=== PATIENT | female | born 1930 | race African-American/Black ===

== ENCOUNTER 2018-04-11 00:10 | Inpatient (IN) | payer MEDICARE, MEDICAID ==
[2018-04-11 01:27] LABS: ALT (SGPT) Less than 7 U/L (8-55); AST (SGOT) 11 U/L (5-34); Albumin 3.5 g/dL (3.4-4.8); Alkaline Phosphatase 67 U/L (40-150); Anion Gap 11 mmol/L (10-20); BUN (Urea Nitrogen) 11 mg/dL (9.8-20.1); Bilirubin, Total 0.6 mg/dL (0.2-1.2); CK (CPK) 14 U/L (29-168); Calc. Creatinine Clearance 0 mL/min (70-130); Calcium 9.2 mg/dL (7.8-10.44); Carbon Dioxide 29 mmol/L (23-31); Chloride 104 mmol/L (98-107); Estimated GFR-MDRD 86; Globulin 3.8 g/dL (2.4-3.5); Glucose 103 mg/dL (83-110); Lipase 14 U/L (8-78); Protein, Total 7.3 g/dL (6.0-8.3); Sodium 140 mmol/L (136-145)
[2018-04-11 01:31] LABS: CKMB 0.4 ng/mL (0-6.6); Troponin I Less than 0.010 ng/mL (< 0.028)
[2018-04-11 01:32] LABS: #Basophils 0.1 thou/uL (0.0-0.2); #Eosinphils 0.2 thou/uL (0.0-0.7); #Lymphocytes 2.8 thou/uL (1.20-3.40); #Monocytes 0.4 thou/uL (0.11-0.59); #Neutrophils 4.6 thou/uL (1.40-6.50); %Basophils 0.7 % (0.0-1.0); %Eosinophils 2.2 % (0.0-10.0); %Lymphocytes 34.8 % (21.0-51.0); %Monocytes 4.7 % (0.0-10.0); %Neutrophils 57.6 % (42.0-75.0); Hemoglobin 11.9 g/dL (12.0-16.0); MDiff Complete? YES; Macrocytosis SLIGHT = 6-15 cells (100X) (0-5/hpf); Mean Corpuscular Hemoglobin 37.7 pg (27.0-31.0); Mean Platelet Volume 6.8 fL (7.4-10.4); Platelet Count 247 thou/uL (130-400); RBC Distribution Width 15.8 % (11.5-14.5); Red Blood Cell (RBC) Count 3.16 mill/uL (4.20-5.40); White Blood Cell (WBC) Count 8.1 thou/uL (4.8-10.8)
[2018-04-11] MEDS ORDERED: Mag-Al 1200 mg/1200 mg/30 ML UDCUP ONE (01:41)
[2018-04-11] MEDS ORDERED: Lidocaine Viscous Sol 2% 15 ml UD Cup ONE (01:41)
[2018-04-11 06:29] LABS: Troponin I Less than 0.010 ng/mL (< 0.028)
[2018-04-11] MEDS ORDERED: Sodium Chloride 0.45% 1,000 ML IV SCH (07:21)
[2018-04-11 07:32] VITALS: BMI 15.7
--- NOTE | 2018-04-11 08:11 | ULT ---
PRELIMINARY REPORT/[facility]/EMERGENCY AFTER HOURS PROCEDURE: EXAM: US Abdomen Limited, Right Upper Quadrant EXAM DATE/TIME: 04/11/2018 1:13 AM CLINICAL HISTORY: 87 years old, female; Pain; Other: Epigastric pain TECHNIQUE: Real-time ultrasound of the abdomen with image documentation. Examination was focused on the right up per quadrant. COMPARISON: No relevant prior studies available. FINDINGS: Liver: No acute findings. No masses. Gallbladder: Gallbladder stones and sludge. Questionable borderline gallbladder wall thickening. Common bile duct: Measures 0.5cm in diameter. Pancreas: Limited visualization due to bowel gas. Right kidney: Right hydronephrosis. Other findings: Bilateral ureteral jets visualized. IMPRESSION: Cholelithiasis with questionable borderline gallbladder wall thickening; recommend clinical correlati on/followup to exclude cholecystitis. Right hydronephrosis. Further evaluation can be performed with CT. Thank you for allowing us to participate in the care of your patient. Dictated and Authenticated by: Rogelio Chapman MD 04/11/2018 1:55 AM Central Time ([place] & [place]) FINAL REPORT RIGHT UPPER QUADRANT ULTRASOUND: Date: 04/11/18 FINDINGS/IMPRESSION: I agree with the preliminary report given by Brooke. POS: CHAU
--- NOTE | 2018-04-11 08:15 | CT ---
PRELIMINARY REPORT/[facility]/EMERGENCY AFTER HOURS PROCEDURE: EXAM: CT Angiography Chest With Intravenous Contrast EXAM DATE/TIME: 04/11/2018 3:18 AM CLINICAL HISTORY: 87 years old, female; Pain and signs and symptoms; Shortness of breath; Chest pain; Type not specifie d; Patient HX: F88 C/O intermittent dull epigastric pain onset today. PT reports associated symptoms of SOB and cough today. H reports hr was in 120s, but ems reports it has been in the 80s TECHNIQUE: Axial computed tomographic angiography images of the chest with intravenous contrast using CT angiogr aphy protocol. MIP reconstructed images were created and reviewed. COMPARISON: No relevant prior studies available. FINDINGS: Pulmonary arteries: Limited evaluation of the lower lobe pulmonary arteries due to motion, streak art ifacts and suboptimal contrast opacification. No central filling defect to suggest acute pulmonary em bolism. Mild pulmonary artery enlargement suggestive of pulmonary hypertension. Aorta: Scattered atherosclerotic calcifications and plaques. No aortic aneurysm or dissection. Lungs: No mass. No consolidation. Bibasilar pleuroparenchymal scarring. Few punctate nonspecific nodu les. Mild peribronchial thickening and secretions. Pleural space: No pneumothorax. No pleural effusion. Heart: Mild cardiomegaly. Coronary calcifications. No pericardial effusion. Mediastinum: Small hiatal hernia. Bones/joints: No acute fracture. Soft tissues: No acute findings. Lymph nodes: No enlarged lymph nodes. Upper abdomen: Refer to same day CT abdomen. IMPRESSION: No evidence of acute pulmonary embolism. Mild cardiomegaly. Coronary calcifications. Other findings above. Thank you for allowing us to participate in the care of your patient. Dictated and Authenticated by: Rogelio Chapman MD 04/11/2018 4:13 AM Central Time ([place] & [place]) FINAL REPORT CT PULMONARY ANGIOGRAM WITH IV CONTRAST AND 3D POSTPROCESSING: Date: 04/11/18 FINDINGS/IMPRESSION: I agree with the preliminary report given by Brooke. POS: CHAU
--- NOTE | 2018-04-11 08:17 | CT ---
PRELIMINARY REPORT/[facility]/EMERGENCY AFTER HOURS PROCEDURE: EXAM: CT Abdomen and Pelvis With Intravenous Contrast EXAM DATE/TIME: 04/11/2018 3:18 AM CLINICAL HISTORY: 87 years old, female; Pain; Abdominal pain; Epigastric; Patient HX: F88 C/O intermittent dull epigast beba pain onset today. PT reports associated symptoms of SOB and cough today. H reports hr was in 120s , but ems reports it has been in the 80s TECHNIQUE: Axial computed tomography images of the abdomen and pelvis with intravenous contrast. Coronal reforma tted images were created and reviewed. COMPARISON: US Gallbladder RUQ 04/11/2018 1:13 AM FINDINGS: Lower thorax: Refer to same day CT chest. ABDOMEN: Liver: No acute findings. No mass. Gallbladder and bile ducts: Gallbladder sludge/small stones seen on ultrasound are not well appreciat ed by CT. Pancreas: No acute findings. No ductal dilation. Spleen: No acute findings. No splenomegaly. Adrenals: No acute findings. No mass. Kidneys and ureters: No acute findings. No hydronephrosis. Bilateral parapelvic cysts. Stomach and bowel: Fecal loading. Diverticulosis. No evidence of bowel obstruction. Appendix: No evidence of appendicitis. PELVIS: Bladder: No acute findings. Reproductive: No acute findings. Probable calcified uterine fibroid. ABDOMEN and PELVIS: Intraperitoneal space: Trace pelvic cul-de-sac fluid. Bones/joints: No acute fracture. No dislocation. Soft tissues: No acute findings. Fat-containing umbilical hernia. Vasculature: Atherosclerotic calcifications. No aortic aneurysm or dissection. Lymph nodes: No acute findings. No enlarged lymph nodes. IMPRESSION: No acute CT findings. Refer to same day ultrasound for evaluation of the gallbladder. Thank you for allowing us to participate in the care of your patient. Dictated and Authenticated by: Rogelio Chapman MD 04/11/2018 4:26 AM Central Time ([place] & [place]) FINAL REPORT CT ABDOMEN AND PELVIS WITH IV CONTRAST: Date: 04/11/18 FINDINGS/IMPRESSION: I agree with the preliminary report given by Brooke. POS: MADDISON
--- NOTE | 2018-04-11 08:35 | RAD ---
RADIOGRAPH CHEST 1 VIEW: HISTORY: 87-year-old female with chest pain. FINDINGS: The thoracic aorta is tortuous and ectatic. There is no evidence of air space density, pneumothorax, or pulmonary edema. The lateral costophrenic angles are sharp. IMPRESSION: 1. No acute pulmonary findings. 2. Ectasia of thoracic aorta. milvia [] POS: CHAU
[2018-04-11] MEDS ORDERED: Prevnar 13-Val Conj/PF 0.5 ML SYRINGE IM ONE (09:00)
[2018-04-11 09:44] LABS: Troponin I Less than 0.010 ng/mL (< 0.028)
[2018-04-11 09:58] LABS: Bilirubin Negative (Negative); Blood, Urine Small (Negative); Clarity CLEAR (Clear); Glucose, Urine (Dipstick) Negative (Negative); Leukocyte Large (Negative); Nitrite Positive (Negative); Protein, Urine (Dipstick) Negative (Neg-Trace); Specific Gravity, Urine 1.025 (1.002-1.036)
[2018-04-11 10:00] LABS: Bacteria/HPF None Seen HPF (None Seen); Hyaline Casts/LPF 0-3 HYALINE CAST LPF (0-3 Hyaline); Squamous Epithelial 0-3 HPF (0-3)
[2018-04-11] MEDS ORDERED: ISOVUE-370 76%-LOCM 1 ML ONE (12:39)
--- NOTE | 2018-04-11 17:34 | NM ---
HEPATOBILIARY SCAN: 04/11/18 HISTORY: Abdominal pain, epigastric pain, cholelithiasis on ultrasound from earlier today. RADIOPHARMACEUTICAL: 5.2 millicuries technetium 99m - Mebrofenin injected intravenously. FINDINGS: There is good tracer extraction of the liver with prompt excretion to the biliary tract and small bow el loops and filling of the gallbladder. The calculated gallbladder ejection fraction following an oral fatty meal measures 88%. IMPRESSION: Normal exam. POS: FELIPAA
--- NOTE | 2018-04-11 18:25 | CON ---
DATE OF CONSULTATION: 04/11/2018 REQUESTING PHYSICIAN: Dr. Ag Andujar. HISTORY OF PRESENT ILLNESS: This is an 87-year-old -Chinese woman, a resident of an extended care facility who was brought to the emergency department today for evaluation of acute onset of iban st pain. Reportedly, the patient's heart rate in the 120s in the care home; however, heart rate h as been less than 100 in the emergency department. Finding no evidence of acute coronary syndrome, f urther workup included abdominal ultrasound which revealed biliary sludge. Patient has been referred to General Surgery for further evaluation to exclude any surgical disease. At the time of my evalua tion, patient denies any pain. She denies any nausea, vomiting. She has had no fevers or chills. PAST MEDICAL HISTORY: Significant for hyperlipidemia, previous pulmonary embolism. PAST SURGICAL HISTORY: 1. Pertinent for bilateral intraocular lens implant for cataracts. 2. She has had no abdominal or chest surgeries. SOCIAL HISTORY: Patient is a resident of a care home who has no cigarette smoking, ethanol or ill icit drug abuse. FAMILY HISTORY: Noncontributory for this patient's age. PREHOSPITAL MEDICATIONS: Includes acetaminophen 650 mg p.o. q.6 hours p.r.n. pain, meclizine 25 mg p .o. q.i.d., Protonix 40 mg p.o. daily, Zofran 4 mg p.o. q.6 hours p.r.n. nausea. REVIEW OF SYSTEMS: Essentially unremarkable except for as stated in past medical history and chief c omplaint. PHYSICAL EXAMINATION: GENERAL: This reveals an 87-year-old normally developed woman who is otherwise coherent and interact prashanth. She appears to be in no acute distress at the time of my evaluation. VITAL SIGNS: Includes blood pressure 146/58, pulse 64, respiratory rate is 20, temperature is 97.8 d egrees Fahrenheit, oxygen saturation 99% on room air. HEENT: Reveals pupils equal, round, reactive to light and accommodation. She has no sclerae icterus present. HEART: Reveals regular rate and rhythm, no murmurs or gallops auscultated. LUNGS: Clear to auscultation bilaterally. Breathing regular and unlabored. ABDOMEN: Soft, nontender, nondistended. Liver and spleen are nonpalpable below costal margin. EXTREMITIES: With 2+ radial and pedal pulses bilaterally. She has no ankle edema present. NEUROLOGICAL: Examination reveals no focal neurologic deficits present. PERTINENT LABORATORY DATA: Today includes a CBC with normal white blood cell count of 8100, hemoglob in and hematocrit 11.9 and 37.3 respectively. Platelet count is 247,000. Metabolic profile: Sodium 140, potassium is 4.0, chloride is 104, bicarbonate is 29, BUN 11, creatinine 0.77, glucose 103, tot al bilirubin is 0.6, AST and ALT 11 and less than 7 respectively. Serum lipase is normal at 14. I have personally reviewed the CT scan of the chest, abdomen, and pelvis, both of which are unremarka ble for any acute intrathoracic or intra-abdominal pathology. I have also reviewed the abdominal ult rasound, which reveals biliary sludge. No gallbladder wall thickening, no pericholecystic fluid or g allstones present. Common bile duct size is normal for this patient's age at 4.8 mm in diameter. IMPRESSION: 1. Resolved epigastric abdominal pain. 2. Biliary sludge with no clinical or radiographic evidence of acute cholecystitis. PLAN: 1. We will obtain HIDA scan to rule out chronic biliary dysfunction. 2. There is no acute surgical indication for this patient at this time. 3. We will re-evaluate the patient again once the HIDA scan has been completed and make further tarsha mmendations as necessary.
[2018-04-11] MEDS: Pantoprazole 40 MG VIAL IVP SCH (22:17)
--- NOTE | 2018-04-12 12:24 | PRG ---
DATE OF SERVICE: 04/12/2018 SUBJECTIVE: Ms. Whitfield is an 87-year-old woman who had been seen to exclude biliary disease. The pat ient had a normal HIDA scan yesterday. This morning, she tolerates general diet. She denies any abd ominal pain. OBJECTIVE: VITAL SIGNS: Includes blood pressure 138/64, pulse 60, respiratory 16, temperature 97.9 degrees Fahr enheit, oxygen saturation 98% on room air. ABDOMEN: Soft, nontender, nondistended. ASSESSMENT: Resolved abdominal pain. Clearly no clinical or radiographic evidence of acute cholecys titis. There is no further surgical indication for this patient at this time. General Surgery with sign off and defer a discharge of this patient to the discretion of the primary service.
[2018-04-12] MEDS: Pantoprazole 40 MG VIAL IVP SCH (20:11)
[2018-04-13 07:38] VITALS: BP 139/65; TEMP 97.6
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
--- NOTE | 2018-04-14 13:17 | DIS ---
DATE OF ADMISSION: 04/11/2018 DATE OF DISCHARGE: 04/13/2018 ADMITTING DIAGNOSES: 1. Abdominal pain, epigastric in right upper quadrant, rule out cholecystitis. 2. Cholelithiasis. 3. Chest pain, rule out myocardial infarction. 4. Degenerative joint disease. 5. Urinary tract infection. 6. History of chronic osteomyelitis. FINAL DIAGNOSES: 1. Abdominal pain, epigastric in right upper quadrant, resolved 2. Cholelithiasis. 3. No evidence of cholecystitis. 4. Chest pain. No evidence of acute myocardial infarction. 5. Urinary tract infection. 6. Degenerative joint disease. 7. History of osteomyelitis, chronic. BRIEF SUMMARY OF HOSPITAL COURSE: Ms. Whitfield is an 87-year-old female admitted, because of abdominal pain. The patient had pain in the epigastrium and radiated to the right upper quadrant. Her ultrasound of the abdomen revealed cholelithiasis with some thickened wall of gallbladder. A CT scan of the abdomen was done in view of her cholelithiasis and possible cholecystitis. The patient was seen by Dr. Kingsley. He suggested hepatobiliary scan in view of no acute cholecystitis. Hepatobiliary scan was done and it was normal, so there is no cholecystitis. so he suggested conservative management. The patient's abdominal pain completely resolved. No nausea or vomiting. She is tolerating diet very well. The patient was also found to have a urinary tract infection. She was started on levofloxacin. In view of improvement, the patient is being discharged home. At the time of discharge, she was stable. Her vital signs were stable. Lungs were clear. Heart sounds regular. Abdomen is soft, nontender. Bowel sounds present. DISCHARGE MEDICATIONS: Include Tylenol p.r.n., Protonix 40 mg daily, Zofran p.r.n., meclizine 25 mg q.i.d. p.r.n., Maalox p.r.n., Levaquin 500 mg daily for 5 days. DISCHARGE FOLLOWUP: The patient will be followed up by the snf. YULISSA
--- NOTE | 2018-04-21 06:57 | PQF ---
HEIDY MURRY VENKAT R MD [id number] [facility] [id number] CLINICAL DOCUMENTATION CLARIFICATION FORM: POST DISCHARGE DATE: 04/21/2018 ATTN: Dr. Fagan Please exercise your independent, professional judgment in responding to the clarification form. Clinical indicators are provided on the bottom of this form for your review Please specify the cause of patient's abdominal pain, epigastric in right upper quadrant Please check appropriate box(s): [ ] Cholelithiasis [ ] Other (please specify) [ y] Unable to determine In addition, please specify: Present on Admission (POA): [ y] Yes [ ] No [ ] Unable to determine For continuity of documentation, please document condition throughout progress notes and discharge summary. Thank You. CLINICAL INDICATORS - SIGNS / SYMPTOMS / LABS Per H&P: Admitted with onset of abdominal pain in the epigastric. Tender in the epigastric area and right upper quadrant. Ultrasound of the abdomen revealed cholelithiasis with thickening of gallbladder wall. RISK FACTORS Per H&P: Cholelithiasis. TREATMENTS: Per H&P: IV fluids. Protonix 40 mg IV piggyback daily. Levaquin 750 IV piggyback daily. General surgery consult. (This form is maintained as a part of the permanent medical record) 2014 [employer] All Rights Reserved [email or web address] [phone] MTDD
== END 2018-04-13 12:27 | DRG 392 ==
LOC: ERS 00:10 → 2SE 05:17 → OBSVTOIN 11:29
PROVIDERS: ADMIT Internal Medicine; ATTEND Internal Medicine
DX: R10.13 Epigastric pain (principal); N39.0 Urinary tract infection, site not specified; R10.11 Right upper quadrant pain; K80.20 Calculus of gallbladder without cholecystitis without obstruction; E78.5 Hyperlipidemia, unspecified; R07.9 Chest pain, unspecified; M19.90 Unspecified osteoarthritis, unspecified site; Z86.711 Personal history of pulmonary embolism; Z88.6 Allergy status to analgesic agent; Z88.1 Allergy status to other antibiotic agents; Z88.0 Allergy status to penicillin; Z88.2 Allergy status to sulfonamides; Z79.899 Other long term (current) drug therapy
CPT/HCPCS: 36415; 36416; 71045; 71275; 74177; 76705; 78227; 80053; 81003; 81015; 82553; 83690; 83880; 84484; 85025; 85379; 93005; 96365; A9537; C9113; J1956

== ENCOUNTER 2018-08-10 11:04 | Outpatient (CLI) | payer MEDICARE, MEDICAID | END 2018-08-10 11:05 | disposition home or self-care (01) | PROVIDERS: ATTEND Internal Medicine | DX: I69.891 Dysphagia following other cerebrovascular disease (principal); R63.3 Feeding difficulties; K21.9 Gastro-esophageal reflux disease without esophagitis | CPT/HCPCS: 74230 ==